=== PATIENT | female | born 1975 | race Two or more races ===

== ENCOUNTER → 2024-07-04 | Outpatient (CLI) | payer MEDICAID, SELFPAY ==
--- NOTE | 2024-07-04 10:00 | XR_ITS ---
Examination: Breast ultrasound complete, bilateral Date and time of exam: July 04, 2024 1059 hours INDICATIONS: Bilateral breast pain and palpable lumps 2 years, family history breast cancer Technique: Real-time grayscale ultrasonographic imaging bilateral breasts, including all 4 quadrants as well as nipple retroareolar and axillary regions. Findings: Sonographic images right breast No cystic or solid mass Sonographic images left breast 12:00 oval mass lobular margins 11 x 9 mm 3:00 cyst 7 x 6 mm 11:00 oval mass circumscribed 5 x 5 mm IMPRESSION: BI-RADS Category 3: Probably benign findings One additional 6 month left breast sonogram follow-up is needed to document stability of solid nodules left breast described above
--- NOTE | 2024-07-04 10:30 | XR_ITS ---
Examination: Diagnostic digital mammography, bilateral Computer aided detection 3-D breast Tomosynthesis, bilateral Date and time of exam: July 04, 2024 1122 hours Comparison May 30, 2022 Technique: Nonmagnified MLO, CC views of the breasts to been obtained, reconstructed from 3-D Tomosynthesis images. R2 computer aided detection program utilized for evaluation of suspicious masses and/or abnormal calcifications. 3-D Tomosynthesis images obtained. Findings: Scattered areas of fibroglandular density Benign calcifications. No suspicious masses Impression: BI-RADS Category 2: Benign findings Recommend yearly follow-up mammography Please see the left breast sonogram report today recommending 6 month left breast sonogram follow-up
== END | disposition home or self-care (01) ==
PROVIDERS: Referring Provider Registered Nurse General Practice; Visit Provider Registered Nurse General Practice
DX: R92.323 Mammographic fibroglandular density, bilateral breasts (principal); R92.1 Mammographic calcification found on diagnostic imaging of breast; N63.25 Unspecified lump in the left breast, overlapping quadrants; N63.22 Unspecified lump in the left breast, upper inner quadrant
CPT/HCPCS: 76641; 77062; 77066; G0279

== ENCOUNTER 2024-08-26 06:50 | Day surgery (SDC) | payer MEDICAID, SELFPAY ==
[2024-08-26] VITALS (9 sets, daily range): BP systolic 113–186; BP diastolic 77–101; PULSE 62–90; RESP 13–25; TEMP 36.7–36.8; O2SAT 100; BMI 31.6
[2024-08-26 07:47] LABS: HCG Qualitative,Urine Negative
[2024-08-26] MEDS: DiphenhydrAMINE INJ 50 MG/ML VIAL 25 MG IV (08:01)
[2024-08-26] MEDS: MIDAZOLAM INJ 1 MG/ML VIAL 2 ML (ASD USE ONLY) 2 MG IV (08:01)
[2024-08-26] MEDS: SODIUM CHLORIDE 0.9% 100 ML IV (08:02)
[2024-08-26] MEDS: fentaNYL CIT INJ 50 mCg/ML AMP 2ML (ASD USE ONLY) IV (08:02)
== END 2024-08-26 08:45 | disposition home or self-care (01) ==
PROVIDERS: PCP Family Medicine; Referring Provider Surgery; Visit Provider Surgery
PROC: 0DBE8ZX Excision of Large Intestine, Via Natural or Artificial Opening Endoscopic, Diagnostic (ICD-10-PCS; CPT 45380; principal; 2024-08-26 08:00)
DX: K64.1 Second degree hemorrhoids (principal)
CPT/HCPCS: 45378; 81025; J1200; J2250; J3010; J7050